=== PATIENT | male | born 1985 | race Caucasian/White ===

== ENCOUNTER 2019-12-31 20:31 | Emergency (ER) | payer BC ==
[2019-12-31] MEDS ORDERED: Lidocaine 1% 10 ML MDV INJECT ONE (20:36)
[2019-12-31] MEDS ORDERED: Diphtheria,Pertussis(Acell),Tetanus Vaccine 0.5 ML Syringe IM ONE (20:42)
--- NOTE | 2019-12-31 20:57 | EDM.PDOC ---
ED HPI GENERAL MEDICAL PROBLEM - General Chief Complaint: Upper Extremity Injury/Pain Stated Complaint: LEFT HAND FISH HOOK IN POINTER FINGER Time Seen by Provider: 12/31/19 20:37 Source of Information: Reports: Patient History Limitations: Reports: No Limitations - History of Present Illness INITIAL COMMENTS - FREE TEXT/NARRATIVE: Patient is a 34-year-old male who presents to the emergency department with complaints of a fishhook through the dorsal aspect of his left index finger. He is unsure when his last tetanus vaccination was. - Related Data Allergies Allergy/AdvReac Type Severity Reaction Status Date / Time No Known Allergies Allergy Verified 12/31/19 20:40 Home Meds: Home Meds . [No Known Home Meds] 12/31/19 [History] Past Medical History - Past Health History Medical/Surgical History: Denies Medical/Surgical History Social & Family History - Tobacco Use Smoking Status *Q: Never Smoker - Recreational Drug Use Recreational Drug Use: No Review of Systems - Review of Systems Review Of Systems: Comprehensive ROS is negative, except as noted in HPI. ED EXAM, GENERAL - Physical Exam Exam: See Below Exam Limited By: No Limitations General Appearance: Alert, WD/WN, No Apparent Distress Respiratory/Chest: No Respiratory Distress, Lungs Clear, Normal Breath Sounds, No Accessory Muscle Use, Chest Non-Tender Cardiovascular: Normal Peripheral Pulses, Regular Rate, Rhythm, No Edema, No Gallop, No JVD, No Murmur, No Rub Skin Exam: Other (Single fishhook through the dorsal aspect the left index finger. No active bleeding.) Course - Vital Signs Last Recorded V/S: Last Vital Signs Temp 96.7 F L 12/31/19 20:38 Pulse 72 12/31/19 20:38 Resp 19 12/31/19 20:38 BP 136/82 12/31/19 20:38 Pulse Ox 99 12/31/19 20:38 - Orders/Labs/Meds Orders: Active Orders 24 hr Category Date Time Status Vaccines to be Administered [RC] PER UNIT ROUTINE Care 12/31/19 20:42 Active Meds: Medications Discontinued Medications Generic Name Dose Route Start Last Admin Trade Name Freq PRN Reason Stop Dose Admin Diphtheria/Tetanus/Acell Pertussis 0.5 ml 12/31/19 20:42 Adacel IM 12/31/19 20:43 .ONCE ONE Lidocaine HCl 10 ml 12/31/19 20:36 Xylocaine 1% INJECT 12/31/19 20:37 ONETIME ONE - Re-Assessments/Exams Free Text/Narrative Re-Assessment/Exam: Patient is a 34-year-old male who presents to the emergency department with complaints of a fishhook in his left index finger. He is unsure when his last tetanus vaccination was. After anesthetization with lidocaine, the fishhook was pushed through the skin and so that the cassandra was exposed. Cassandra was clipped off and we were able to easily remove the fishhook. We did update to date his tetanus vaccination today. Discussed to monitor for signs of infection. Discharge instructions as documented. Departure - Departure Time of Disposition: 20:56 Disposition: Home, Self-Care 01 Condition: Good Clinical Impression: [place] injury to finger Qualifiers: Encounter type: initial encounter Laterality: left Qualified Code(s): S69.92XA - Unspecified injury of left wrist, hand and finger(s), initial encounter - Discharge Information *PRESCRIPTION DRUG MONITORING PROGRAM REVIEWED*: No *COPY OF PRESCRIPTION DRUG MONITORING REPORT IN PATIENT FREDY: No Referrals: PCP,None [Primary Care Provider] - Additional Instructions: You were seen in the emergency department today for a fishhook stuck in your left index finger. The cassandra was clipped and the fishhook was able to be easily removed. Your tetanus vaccination was updated today see you are up-to-date for 10 years. Recommend that you wash the wound twice daily with normal soap and water. Watch for signs of infection such as increased redness, swelling, purulent drainage. If this should occur you should be seen in the clinic or return to the ER as antibiotics would be indicated. Sepsis Event Note (ED) - Evaluation Sepsis Screening Result: No Definite Risk - Focused Exam Vital Signs: Vital Signs Temp Pulse Resp BP Pulse Ox 12/31/19 20:38 96.7 F L 72 19 136/82 99 - My Orders Last 24 Hours: My Active Orders 12/31/19 20:42 Vaccines to be Administered [RC] PER UNIT ROUTINE - Assessment/Plan Last 24 Hours: My Active Orders 12/31/19 20:42 Vaccines to be Administered [RC] PER UNIT ROUTINE
== END 2019-12-31 21:05 | disposition home or self-care (01) ==
LOC: JD.ED 20:31
DX: S60.451A Superficial foreign body of left index finger, initial encounter (principal); Z23 Encounter for immunization; W45.8XXA Other foreign body or object entering through skin, initial encounter
CPT/HCPCS: 90471; 90715; 99283; J2001; 99282